=== PATIENT | male | born 1960 | race American Indian/Alaskan Native ===

== ENCOUNTER 2016-07-12 08:20 | Emergency (ER) | payer BC ==
[2016-07-12] MEDS ORDERED: CATAPRES ONE (09:43)
[2016-07-12] MEDS ORDERED: ZESTRIL ONE (09:44)
[2016-07-12] MEDS ORDERED: ZESTRIL PO ONE (09:47)
[2016-07-12] MEDS ORDERED: CATAPRES PO ONE (09:47)
[2016-07-12] MEDS ORDERED: TORADOL IV ONE (10:01)
[2016-07-12 10:20] LABS: Basophils % (Auto) 0.9 % (0.0-1.8); Eosinophils % (Auto) 0.9 % (0.0-4.3); Hematocrit 46.1 % (35.5-45.6); Hemoglobin 15.4 gm/dl (11.8-15.2); Mean Corpuscular HGB Conc 33 % (32-34); Mean Corpuscular Hemoglobin 32 pg (28-32); Mean Corpuscular Volume 96 fl (84-94); Platelet Count 185 K/mm3 (140-440); Red Blood Count 4.82 M/mm3 (3.65-5.03); Red Cell Distribution Width 14.1 % (13.2-15.2); White Blood Count 8.4 K/mm3 (4.5-11.0)
--- NOTE | 2016-07-12 10:58 | Emergency Department Report ---
Entered by JOSIE ANDERS, acting as scribe for ZO MANNING PA. Chief Complaint: Skin/Abscess/Foreign Body Stated Complaint: BOIL ON LEFT SIDE OF NECK Time Seen by Provider: 07/12/16 09:34 - HPI History of Present Illness: Pt c/o left side of neck swelling that gradually worsened over a week. Rates associated pain a 4/10 in severity. Denies fever, nausea, vomiting, difficulty breathing, chest pain, headache, and sore throat. PMHx of HTN Pt notes he stopped taking bp medication, Lisinopril, 6 months ago. Pt's bp currently elevated to 167/116 in triage - ROS Review of Systems: All systems are negative unless stated in HPI above. - Exam Vital Signs: Vital Signs 07/12/16 07/12/16 08:25 08:31 Temperature 98.4 F 98.4 F Pulse Rate 115 H 115 H Respiratory 20 20 Rate Blood Pressure 167/116 Blood Pressure 173/114 [Left] O2 Sat by Pulse 97 97 Oximetry Vital Signs 07/12/16 07/12/16 07/12/16 08:25 08:31 09:34 Temperature 98.4 F 98.4 F 98.4 F Pulse Rate 115 H 115 H 115 H Respiratory 20 20 18 Rate Blood Pressure 167/116 Blood Pressure 173/114 [Left] Blood Pressure 186/131 [Right] O2 Sat by Pulse 97 97 99 Oximetry Physical Exam: General: 55 y/o male that is well nourished, well developed, nontoxic in appearance, and in no acute distress Cardiovascular: S1/S2 regular rate and rhythm. No murmurs, rubs, or gallops. Respiratory: Normal lung sounds bilaterally. No respiratory distress Skin: Warm, dry, intact. Abscess present on left side of neck. MSE screening note: Focused history and physical exam performed. Due to findings the following was ordered: patient has CT scan soft tissue neck ordered for neck abscess evaluation. ED Medical Decision Making - Lab Data Result diagrams: 07/12/16 10:06 - Medical Decision Making Patient seen by provider in triage area. ED Disposition for MSE Condition: Stable This documentation as recorded by the scribe,JOSIE ANDERS,accurately reflects the service I personally performed and the decisions made by NIGEL sol AHMAD R., PA.
[2016-07-12 11:30] LABS: Anion Gap 21 mmol/L; Blood Urea Nitrogen 9 mg/dL (9-20); Calcium 9.2 mg/dL (8.4-10.2); Carbon Dioxide 23 mmol/L (22-30); Chloride 99.9 mmol/L (98-107); Glucose 113 mg/dL (75-100); Potassium 4.1 mmol/L (3.6-5.0); Sodium 140 mmol/L (137-145)
[2016-07-12] MEDS ORDERED: NACL ONE (12:44)
--- NOTE | 2016-07-12 14:11 | Cat Scan Report ---
CT NECK WITH CONTRAST INDICATION: Neck swelling. COMPARISON: None similar. FINDINGS: Neck CT performed following IV contrast. Axial, sagittal and coronal CT reconstructions demonstrate approximately 1.7 x 1.2 cm subcutaneous hypodense possible necrotic lymph node or abscess, axial image 95, series 2 laterally, superficial to the left submandibular gland and overlying muscle. Mild adjacent subcutaneous fat stranding/swelling. No other size significant cervical lymphadenopathy. Normal thyroid and salivary glands. Patent vessels and airway, including aortic arch. Clear visualized upper lungs with minimal left apical emphysematous changes/bullae. Multilevel cervical spondylosis. Dental disease noted. Approximately 3.2 cm right maxillary sinus mucosal thickening/retention cyst inferiorly. Normal imaged intracranial appearance. Mild atherosclerotic internal carotid artery calcifications. CONCLUSION: 1. Left neck superficial/subcutaneous small abscess or suppurative lymph node with adjacent stranding/mild swelling, as described. Please correlate. 2. Few other incidental findings, as above. Thank you for the opportunity to participate in this patient's care.
[2016-07-12] MEDS ORDERED: XYLOCAINE 2%/EPI 1:100,000 INFILTRATI ONE (16:21)
--- NOTE | 2016-07-12 16:26 | Emergency Department Report ---
ED ENT HPI - General Chief complaint: Skin/Abscess/Foreign Body Stated complaint: THROAT SWOLLEN Time Seen by Provider: 07/12/16 16:11 Source: patient Mode of arrival: Ambulatory Limitations: No Limitations - History of Present Illness Initial comments: 55-year-old male with no past medical history presenting today because of left sided neck pain. Patient states that about 3 weeks ago after shaving started noticing a bump in his left anterior neck. States that it slowly worsened and then about a week ago had pus coming out and had been improved but has since worsened over the last week. He has no associated fevers or chills. No numbness or weakness. No changes in vision or confusion. Patient has a current cigarette smoker. Does not have a primary care doctor. - Related Data Previous Rx's Medication Instructions Recorded Last Taken Type Acetaminophen/Codeine [Tylenol #3] 1 tab PO Q6H PRN #20 tab 07/30/15 Unknown Rx Cyclobenzaprine [Flexeril] 10 mg PO TID PRN #30 tablet 07/30/15 Unknown Rx Doxycycline [Vibramycin CAP] 100 mg PO Q12HR #20 capsule 07/30/15 Unknown Rx Ibuprofen [Motrin] 600 mg PO Q8H PRN #40 tablet 07/30/15 Unknown Rx Ibuprofen [Motrin] 600 mg PO Q8H PRN #20 tablet 07/12/16 Unknown Rx Lisinopril [Zestril TAB] 10 mg PO QDAY #30 tablet 07/12/16 Unknown Rx Sulfamethoxazole/Trimethoprim 1 each PO BID #14 tablet 07/12/16 Unknown Rx [Bactrim DS TAB] Allergies Allergy/AdvReac Type Severity Reaction Status Date / Time No Known Allergies Allergy Unverified 07/30/15 15:59 ED Dental HPI - General Chief complaint: Skin/Abscess/Foreign Body Stated complaint: THROAT SWOLLEN Time Seen by Provider: 07/12/16 16:11 Source: patient Mode of arrival: Ambulatory Limitations: No Limitations - Related Data Previous Rx's Medication Instructions Recorded Last Taken Type Acetaminophen/Codeine [Tylenol #3] 1 tab PO Q6H PRN #20 tab 07/30/15 Unknown Rx Cyclobenzaprine [Flexeril] 10 mg PO TID PRN #30 tablet 07/30/15 Unknown Rx Doxycycline [Vibramycin CAP] 100 mg PO Q12HR #20 capsule 07/30/15 Unknown Rx Ibuprofen [Motrin] 600 mg PO Q8H PRN #40 tablet 07/30/15 Unknown Rx Ibuprofen [Motrin] 600 mg PO Q8H PRN #20 tablet 07/12/16 Unknown Rx Lisinopril [Zestril TAB] 10 mg PO QDAY #30 tablet 07/12/16 Unknown Rx Sulfamethoxazole/Trimethoprim 1 each PO BID #14 tablet 07/12/16 Unknown Rx [Bactrim DS TAB] Allergies Allergy/AdvReac Type Severity Reaction Status Date / Time No Known Allergies Allergy Unverified 07/30/15 15:59 ED Review of Systems ROS: Stated complaint: THROAT SWOLLEN Other details as noted in HPI Comment: All other systems reviewed and negative Constitutional: denies: chills, fever ENT: denies: ear pain Respiratory: denies: cough, shortness of breath Cardiovascular: denies: chest pain Gastrointestinal: denies: abdominal pain, vomiting Genitourinary: denies: urgency Skin: rash Neurological: denies: headache Psychiatric: denies: anxiety ED Past Medical Hx - Past Medical History Previous Medical History?: Yes Hx Hypertension: Yes - Surgical History Past Surgical History?: No - Social History Smoking Status: Current Every Day Smoker Substance Use Type: Alcohol, Prescribed - Medications Home Medications: Home Medications Medication Instructions Recorded Confirmed Last Taken Type Acetaminophen/Codeine [Tylenol #3] 1 tab PO Q6H PRN #20 tab 07/30/15 Unknown Rx Cyclobenzaprine [Flexeril] 10 mg PO TID PRN #30 tablet 07/30/15 Unknown Rx Doxycycline [Vibramycin CAP] 100 mg PO Q12HR #20 capsule 07/30/15 Unknown Rx Ibuprofen [Motrin] 600 mg PO Q8H PRN #40 tablet 07/30/15 Unknown Rx Ibuprofen [Motrin] 600 mg PO Q8H PRN #20 tablet 07/12/16 Unknown Rx Lisinopril [Zestril TAB] 10 mg PO QDAY #30 tablet 07/12/16 Unknown Rx Sulfamethoxazole/Trimethoprim 1 each PO BID #14 tablet 07/12/16 Unknown Rx [Bactrim DS TAB] ED Physical Exam - General Limitations: No Limitations General appearance: alert, in no apparent distress - Head Head exam: Present: atraumatic - ENT ENT exam: Present: normal exam - Neck Neck exam: Present: other (left anterior neck with 2.5 cm abscess, no spontaneous drainage, tender to palpation, surrounding erythema) - Respiratory Respiratory exam: Present: normal lung sounds bilaterally. Absent: respiratory distress, wheezes - Cardiovascular Cardiovascular Exam: Absent: regular rate, normal rhythm - GI/Abdominal GI/Abdominal exam: Present: soft. Absent: distended, tenderness, guarding - Neurological Exam Neurological exam: Present: alert. Absent: oriented X3 - Psychiatric Psychiatric exam: Present: normal affect, normal mood - Skin Skin exam: Present: intact ED Course Vital Signs 07/12/16 07/12/16 07/12/16 08:25 08:31 09:34 Temperature 98.4 F 98.4 F 98.4 F Pulse Rate 115 H 115 H 115 H Respiratory 20 20 18 Rate Blood Pressure 167/116 Blood Pressure 173/114 [Left] Blood Pressure 186/131 [Right] O2 Sat by Pulse 97 97 99 Oximetry 07/12/16 07/12/16 09:49 14:20 Temperature 97.5 F L Pulse Rate 115 H 101 H Respiratory 18 Rate Blood Pressure 186/131 153/102 Blood Pressure [Left] Blood Pressure [Right] O2 Sat by Pulse 99 Oximetry - I & D Left Anterior Lateral Neck Type of Procedure: Simple Site: left anterior lateral neck Blade Size: 11 I & D Procedure: sterile drapes applied Progress: ChloraPrep was used to clean the site, approximately 3 mL of 2% lidocaine with epinephrine was inserted at the center of the abscess, incision made over the center approximately 1 cm with purulent thick discharge removed, minimal bleeding, the abscess looks significantly smaller after I&D, patient tolerated well, I explained the patient the importance of following up and using warm compresses to allow continue drainage of the site. ED Medical Decision Making - Lab Data Result diagrams: 07/12/16 10:06 07/12/16 10:06 - Medical Decision Making Labs and CT preordered, CT is consistent with a superficial abscess, labs are unremarkable Clinically patient has an abscess and will attempt an incision and drainage Incision and drainage done without complication, see procedure note, due to surrounding erythema will discharge the patient on antibiotics. Critical care attestation.: If time is entered above; I have spent that time in minutes in the direct care of this critically ill patient, excluding procedure time. ED Disposition Clinical Impression: Neck abscess, Hypertension Disposition: DISCHARGED TO HOME OR SELFCARE Is pt being admited?: No Does the pt Need Aspirin: No Condition: Stable Instructions: Abscess Incision and Drainage (ED), Hypertension (ED) Additional Instructions: Please follow up with a primary care doctor in the next 3-5 days. Return to the emergency room for wound check in approximately 2-3 days. Return earlier to the emergency room if you have significant worsening of your symptoms including worsening swelling, pain, fever or any other new symptoms. Please make sure to use the warm compresses as we have discussed. Prescriptions: Ibuprofen [Motrin] 600 mg PO Q8H PRN #20 tablet PRN Reason: Pain Lisinopril [Zestril TAB] 10 mg PO QDAY #30 tablet Sulfamethoxazole/Trimethoprim [Bactrim DS TAB] 1 each PO BID #14 tablet Referrals: PRIMARY CARE, [Primary Care Provider] - 3-5 Days Time of Disposition: 17:31
[2016-07-12 18:53] VITALS: BP 150/98
== END 2016-07-12 18:53 | disposition home or self-care (01) ==
LOC: ED 08:20
DX: L02.11 Cutaneous abscess of neck (principal); I10 Essential (primary) hypertension; F17.200 Nicotine dependence, unspecified, uncomplicated
CPT/HCPCS: 10060; 36415; 70491; 80048; 85025; 96374; 99284; J1885; Q9967

== ENCOUNTER 2017-10-04 08:31 | Inpatient (IN) | payer BC, OTHER ==
--- NOTE | 2017-10-04 09:50 | Cat Scan Report ---
CT HEAD WITHOUT CONTRAST: HISTORY: Neurological deficit. TECHNIQUE: Sequential 2.5mm CT images. COMPARISON: none. FINDINGS: Cerebral Parenchyma: Chronic infarct in the right frontal lobe measures 3.1 x 2.8 cm in axial plane. The remaining brain parenchyma has normal attenuation. Normal trevino-white interface. No large area of acute ischemia is detected on noncontrast CT. Cerebellum: Within normal limits. Brainstem: Within normal limits. Ventricles: Normal. Sella: Normal. Extra-axial spaces: Normal. Basal Cisterns: Normal. Intracranial Hemorrhage: None. Midline Shift: None. Calvarium: Normal. Sinuses: Mild mucosal thickening is noted in the inferior maxillary sinuses. Mastoid Air Cells: Normal. Visualized Orbits: Normal. IMPRESSION: Chronic infarct in the right frontal lobe. No acute intracranial process identified.
[2017-10-04] MEDS ORDERED: BABY ASPIRIN PO ONE (10:14)
--- NOTE | 2017-10-04 10:14 | Emergency Department Report ---
ED Neuro Deficit HPI - General Chief Complaint: Neuro Symptoms/Deficit Stated Complaint: RIGHT SIDE OF BODY NUMB Time Seen by Provider: 10/04/17 10:04 Source: patient, RN notes reviewed Mode of arrival: Ambulatory Limitations: No Limitations - History of Present Illness Initial Comments: This is a 56-year-old gentleman who is not known to this provider previously, reports a past medical history of hypertension, noncompliant with medications for one year. Patient presents to the ER with complaints of painless numbness to the right face, right arm, right leg. This started at 2:00 in the morning. It is constant. It does not radiate anywhere. He does not have exacerbating or relieving factors. He denies headache, neck pain, chest pain, abdominal pain, shortness of breath, motor weakness, facial droop. He also denies dysarthria, change in speech pattern, bladder or bowel retention or incontinence. -: Sudden Location: right face, right arm, right leg Presenting Symptoms: Absent: Weak/Paralyzed One Side, Sudden, Severe Headache, Blurred/Loss of Vision, Facial Droop/Numbness, Unable to Speak Clearly, Altered Mental Status History of same: No Place: home Severity: moderate Quality: numb Improves With: none Worsens With: none Context: sudden onset Associated Symptoms: denies: confusion, chest pain, cough, diaphoresis, fever/ chills, headaches, loss of appetite, malise, nausea/vomiting, vertigo, seizures , shortness of breath, syncope, weakness - Related Data Home Medications: Previous Rx's Medication Instructions Recorded Last Taken Type Acetaminophen/Codeine [Tylenol #3] 1 tab PO Q6H PRN #20 tab 07/30/15 Unknown Rx Cyclobenzaprine [Flexeril] 10 mg PO TID PRN #30 tablet 07/30/15 Unknown Rx Doxycycline [Vibramycin CAP] 100 mg PO Q12HR #20 capsule 07/30/15 Unknown Rx Ibuprofen [Motrin] 600 mg PO Q8H PRN #40 tablet 07/30/15 Unknown Rx Ibuprofen [Motrin] 600 mg PO Q8H PRN #20 tablet 07/12/16 Unknown Rx Lisinopril [Zestril TAB] 10 mg PO QDAY #30 tablet 07/12/16 Unknown Rx Sulfamethoxazole/Trimethoprim 1 each PO BID #14 tablet 07/12/16 Unknown Rx [Bactrim DS TAB] Allergies/Adverse Reactions: Allergies Allergy/AdvReac Type Severity Reaction Status Date / Time No Known Allergies Allergy Verified 10/04/17 08:36 ED Review of Systems ROS: Stated complaint: RIGHT SIDE OF BODY NUMB Other details as noted in HPI Comment: All other systems reviewed and negative Neurological: numbness, paresthesias ED Past Medical Hx - Past Medical History Hx Hypertension: Yes - Surgical History Past Surgical History?: No - Social History Smoking Status: Current Every Day Smoker Substance Use Type: Alcohol - Medications Home Medications: Home Medications Medication Instructions Recorded Confirmed Last Taken Type Acetaminophen/Codeine [Tylenol #3] 1 tab PO Q6H PRN #20 tab 07/30/15 Unknown Rx Cyclobenzaprine [Flexeril] 10 mg PO TID PRN #30 tablet 07/30/15 Unknown Rx Doxycycline [Vibramycin CAP] 100 mg PO Q12HR #20 capsule 07/30/15 Unknown Rx Ibuprofen [Motrin] 600 mg PO Q8H PRN #40 tablet 07/30/15 Unknown Rx Ibuprofen [Motrin] 600 mg PO Q8H PRN #20 tablet 07/12/16 Unknown Rx Lisinopril [Zestril TAB] 10 mg PO QDAY #30 tablet 07/12/16 Unknown Rx Sulfamethoxazole/Trimethoprim 1 each PO BID #14 tablet 07/12/16 Unknown Rx [Bactrim DS TAB] ED Neuro Physical Exam - General Limitations: No Limitations General appearance: alert, in no apparent distress Suspected Stroke: Yes - Head Head exam: Present: atraumatic, normocephalic - Eye Eye exam: Present: normal appearance, PERRL, EOMI, other (visual acuity intact to finger counting, color perception, reading at a close distance). Absent: nystagmus - ENT ENT exam: Present: normal exam, normal orophraynx, mucous membranes moist, normal external ear exam - Neck Neck exam: Present: normal inspection, full ROM. Absent: tenderness, meningismus - Respiratory Respiratory exam: Present: normal lung sounds bilaterally. Absent: respiratory distress - Cardiovascular Cardiovascular Exam: Present: normal rhythm, tachycardia, normal heart sounds. Absent: systolic murmur, diastolic murmur, rubs, gallop - GI/Abdominal GI/Abdominal exam: Present: soft. Absent: distended, tenderness, guarding, rebound, rigid, pulsatile mass - Rectal Rectal exam: Present: deferred - Extremities Exam Extremities exam: Present: normal inspection, full ROM, normal capillary refill. Absent: tenderness, pedal edema, joint swelling, calf tenderness - Back Exam Back exam: Present: normal inspection, full ROM. Absent: tenderness, CVA tenderness (R), paraspinal tenderness, vertebral tenderness - Neurological Exam Neurological exam: Present: alert, oriented X3, motor sensory deficit (there is decreased sensation to light touch right upper, right lower extremity. Sensation intact to pinprick bilateral upper, lower extremities. 5 out of 5 strength bilateral upper, lower extremities.). Absent: CN II-XII intact (there is decreased sensation to light touch on the right side V1, V2, V3 distribution. Cranial nerves II through XII otherwise intact) - NIHSS Assessment Interval: Baseline 1a. Level of Consciousness: alert 1b. LOC Questions: answers correctly 1c. LOC Commands: performs tasks correctly 2. Best Gaze: normal 3. Visual: no visual loss 4. Facial Palsy: normal symmetrical movement 5b. Motor Arm Right: no drift 5a. Motor Arm Left: no drift 6a. Motor Leg Left: no drift 6b. Motor Leg Right: no drift 7. Limb Ataxia: absent 8. Sensory: mild/moderate sensory loss 9. Best Language: no aphasia 10. Dysarthria: normal 11. Extinction/Inattention: no abnormality Total Score: 1 Stroke Severity: Minor Stroke - Psychiatric Psychiatric exam: Present: normal affect, normal mood - Skin Skin exam: Present: warm, dry, intact, normal color. Absent: rash ED Course Vital Signs 10/04/17 08:36 Temperature 97.8 F Pulse Rate 102 H Respiratory 20 Rate Blood Pressure 185/117 O2 Sat by Pulse 99 Oximetry - Lab Data Result diagrams: 10/04/17 10:00 10/04/17 10:00 Lab Results 10/04/17 10/04/17 10/04/17 Range/Units 08:41 10:00 10:00 WBC 6.5 (4.5-11.0) K/mm3 RBC 4.95 (3.65-5.03) M/mm3 Hgb 16.0 H (11.8-15.2) gm/dl Hct 46.7 H (35.5-45.6) % MCV 94 (84-94) fl MCH 32 (28-32) pg MCHC 34 (32-34) % RDW 13.9 (13.2-15.2) % Plt Count 177 (140-440) K/mm3 Lymph % (Auto) 30.8 (13.4-35.0) % [place] % (Auto) 8.9 H (0.0-7.3) % Eos % (Auto) 0.9 (0.0-4.3) % Baso % (Auto) 1.2 (0.0-1.8) % Lymph # 2.0 (1.2-5.4) K/mm3 [place] # 0.6 (0.0-0.8) K/mm3 Eos # 0.1 (0.0-0.4) K/mm3 Baso # 0.1 (0.0-0.1) K/mm3 Seg Neutrophils % 58.2 (40.0-70.0) % Seg Neutrophils # 3.8 (1.8-7.7) K/mm3 PT 12.8 (12.2-14.9) Sec. INR 0.92 (0.87-1.13) APTT 26.2 (24.2-36.6) Sec. Thrombin Time (15.1-19.6) Sec. Sodium (137-145) mmol/L Potassium (3.6-5.0) mmol/L Chloride (98-107) mmol/L Carbon Dioxide (22-30) mmol/L Anion Gap mmol/L BUN (9-20) mg/dL Creatinine (0.8-1.5) mg/dL Estimated GFR ml/min BUN/Creatinine Ratio % Glucose (75-100) mg/dL POC Glucose 104 (70-105) Calcium (8.4-10.2) mg/dL Troponin T (0.00-0.029) ng/mL 10/04/17 10/04/17 Range/Units 10:00 10:00 WBC (4.5-11.0) K/mm3 RBC (3.65-5.03) M/mm3 Hgb (11.8-15.2) gm/dl Hct (35.5-45.6) % MCV (84-94) fl MCH (28-32) pg MCHC (32-34) % RDW (13.2-15.2) % Plt Count (140-440) K/mm3 Lymph % (Auto) (13.4-35.0) % [place] % (Auto) (0.0-7.3) % Eos % (Auto) (0.0-4.3) % Baso % (Auto) (0.0-1.8) % Lymph # (1.2-5.4) K/mm3 [place] # (0.0-0.8) K/mm3 Eos # (0.0-0.4) K/mm3 Baso # (0.0-0.1) K/mm3 Seg Neutrophils % (40.0-70.0) % Seg Neutrophils # (1.8-7.7) K/mm3 PT (12.2-14.9) Sec. INR (0.87-1.13) APTT (24.2-36.6) Sec. Thrombin Time 18.3 (15.1-19.6) Sec. Sodium 141 (137-145) mmol/L Potassium 4.9 (3.6-5.0) mmol/L Chloride 104.9 (98-107) mmol/L Carbon Dioxide 23 (22-30) mmol/L Anion Gap 18 mmol/L BUN 9 (9-20) mg/dL Creatinine 0.7 L (0.8-1.5) mg/dL Estimated GFR > 60 ml/min BUN/Creatinine Ratio 13 % Glucose 109 H (75-100) mg/dL POC Glucose (70-105) Calcium 9.3 (8.4-10.2) mg/dL Troponin T < 0.010 (0.00-0.029) ng/mL - EKG Data -: EKG Interpreted by Ri EKG shows normal: sinus rhythm Rate: tachycardia When compared to previous EKG there are: previous EKG unavailable 10/04/17 11:15 Sinus tachycardia, normal axis, QTC prolonged, high left ventricular voltage, atrial enlargement, Q waves in the inferior leads. Abnormal EKG. Not a STEMI. - Radiology Data Radiology results: report reviewed, image reviewed Noncontrast CT scan of the brain is negative for acute findings. Chronic infarct is suggested. - Medical Decision Making Differential diagnosis, including but not limited to: Multiple sclerosis, subacute stroke Assessment and plan: 56-year-old male who presents to the ER with an NIH score of 1, decreased sensation to light touch in the right upper, right lower extremity, and decreased sensation to light touch in the right side V1, V2, V3 distribution. Very suspicious for subacute stroke. Patient reports wake up symptoms, and reports symptom onset at 2:00 in the morning, and he presented to the ER more than 4.5 hours after symptom onset. He is therefore not a TPA candidate. He does not require emergent endovascular imaging, given his low NIH score, and pure sensory syndrome. This case was discussed with consulting stroke neurologist, Dr. De La Rosa, who agreed with all this, and agreed with plan for admission for further evaluation for presumed subacute stroke. Elevated blood pressure is appreciated, and we will allow for permissive hypertension for the next 24 hours. The case is presented to the Hospital physician, Dr. Jun Calles, who has accepted the patient to the medical service. - Core Measures Measure Exclusions: not indicated - Thrombolytic Inclusion/Exclusion Thrombolytic Exclusion Criteria: Symptom Onset > 3 Hours Critical care attestation.: If time is entered above; I have spent that time in minutes in the direct care of this critically ill patient, excluding procedure time. ED Disposition Clinical Impression: CVA (cerebral vascular accident) Qualifiers: CVA mechanism: other Qualified Code(s): I63.8 - Other cerebral infarction Disposition: DC-09 OP ADMIT IP TO THIS HOSP Is pt being admited?: Yes Does the pt Need Aspirin: Yes Condition: Good
[2017-10-04 10:16] LABS: Basophils # (Auto) 0.1 K/mm3 (0.0-0.1); Basophils % (Auto) 1.2 % (0.0-1.8); Eosinophils # (Auto) 0.1 K/mm3 (0.0-0.4); Eosinophils % (Auto) 0.9 % (0.0-4.3); Hematocrit 46.7 % (35.5-45.6); Lymphocytes % (Auto) 30.8 % (13.4-35.0); Mean Corpuscular HGB Conc 34 % (32-34); Mean Corpuscular Hemoglobin 32 pg (28-32); Mean Corpuscular Volume 94 fl (84-94); Monocytes # (Auto) 0.6 K/mm3 (0.0-0.8); Monocytes % (Auto) 8.9 % (0.0-7.3); Platelet Count 177 K/mm3 (140-440); Red Blood Count 4.95 M/mm3 (3.65-5.03); Red Cell Distribution Width 13.9 % (13.2-15.2)
[2017-10-04 10:28] LABS: INR 0.92 (0.87-1.13)
[2017-10-04 10:29] LABS: Partial Thromboplastin Time 26.2 Sec. (24.2-36.6)
[2017-10-04 10:31] LABS: BUN/Creatinine Ratio 13; Blood Urea Nitrogen 9 mg/dL (9-20); Calcium 9.3 mg/dL (8.4-10.2); Hemolysis Index 30
--- NOTE | 2017-10-04 12:17 | History and Physical Report ---
History of Present Illness Date of examination: 10/04/17 Date of admission: 10/04/17 10:35 History of present illness: Patient presents with numbness and tingling right side. No headache, no focal weakness Past History Past Medical History: hypertension Past Surgical History: No surgical history Social history: , lives with family, smoking, alcohol abuse, full code Family history: diabetes, other (CHF) Medications and Allergies Allergies Allergy/AdvReac Type Severity Reaction Status Date / Time No Known Allergies Allergy Verified 10/04/17 08:36 Home Medications Medication Instructions Recorded Confirmed Last Taken Type No Known Home Medications [No 10/04/17 10/04/17 Unknown History Reported Home Medications] Exam - Physical Exam Narrative exam: GEN:Not in acute distress, HEENT: Normocephalic, atraumatic, Neck: supple, No JVD Lungs:Clear to auscultation bilaterally, no crackles, no wheeze Heart:S1 and S2 reg, no murmurs, rubs or gallop Abd:soft, NT, non-distended, Normal BS Ext: No edema, clubbing or cyanosis Neuro:Awake,alert,oriented x 3 Psych: Normal mood - Constitutional Vitals: Temp Pulse Resp BP Pulse Ox 97.8 F 102 H 20 185/117 99 10/04/17 08:36 10/04/17 08:36 10/04/17 08:36 10/04/17 08:36 10/04/17 08:36 Results - Labs CBC & Chem 7: 10/04/17 10:00 10/04/17 10:00 Labs: Abnormal lab results 10/04/17 10/04/17 Range/Units 10:00 10:00 Hgb 16.0 H (11.8-15.2) gm/dl Hct 46.7 H (35.5-45.6) % [place] % (Auto) 8.9 H (0.0-7.3) % Creatinine 0.7 L (0.8-1.5) mg/dL Glucose 109 H (75-100) mg/dL Assessment and Plan Acute ischemic stroke Hypertension
[2017-10-04] MEDS ORDERED: ALUM-MAG HYDROX-SIMETH 200-200-20MG/5ML PO PRN (12:38)
[2017-10-04] MEDS ORDERED: ZOFRAN IV PRN (12:38)
[2017-10-04] MEDS ORDERED: MORPHINE IV PRN (12:38)
[2017-10-04] MEDS ORDERED: TYLENOL PO PRN (12:38)
[2017-10-04] MEDS ORDERED: SODIUM CHLORIDE FLUSH SYRINGE 10 ML IV PRN ×2 (12:38→12:43)
--- NOTE | 2017-10-04 16:34 | Consultation ---
History of Present Illness Consult date: 10/04/17 Requesting physician: DENG BILLINGSLEY Reason for Consult: stroke History of present illness: 56 year old right handed male with history of hypertension presented to ER this a.m., having awakened at 2 a.m. noting numbness of right face, arm and leg. Admission blood pressure was 185/117. It has since come down but symptoms have not improved. The patient denies weakness, dizziness, vision changes, diplopia , diaphoresis, speech difficulty, or palpitations with the event. He has never had similar symptoms before. Denies chest pain or cardiac history. He states that he used to take an anti-hypertensive medication but it made him nauseated so he stopped about one year ago. He has been taking no medications. He was outside the window for TPA treatment. 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 Carotid doppler is less than 50% occlusion. The patient admits smoking one pack per 3 days for the last 20 years. He drinks daily as well. Past History Past Medical History: hypertension Past Surgical History: No surgical history Social history: , lives with family, smoking, alcohol abuse, full code Family history: CAD, diabetes, hypertension, stroke, other (CHF) Medications and Allergies Allergies Allergy/AdvReac Type Severity Reaction Status Date / Time No Known Allergies Allergy Verified 10/04/17 08:36 Home Medications Medication Instructions Recorded Confirmed Last Taken Type No Known Home Medications [No 10/04/17 10/04/17 Unknown History Reported Home Medications] Active Meds: Active Medications Acetaminophen (Tylenol) 650 mg PO Q4H PRN PRN Reason: Pain MILD(1-3)/Fever >100.5/KIRBY Al Hydrox/Mg Hydrox/Simethicone (Alum-Mag Hydrox-Simeth [phone]/5ml) 30 ml PO Q4H PRN PRN Reason: Indigestion Aspirin (Ecotrin) 325 mg PO QDAY KIRSTEN Morphine Sulfate (Morphine) 2 mg IV Q4H PRN PRN Reason: Pain, Moderate (4-6) Ondansetron HCl (Zofran) 4 mg IV Q8H PRN PRN Reason: Nausea And Vomiting Sodium Chloride (Sodium Chloride Flush Syringe 10 Ml) 10 ml IV BID KIRSTEN Sodium Chloride (Sodium Chloride Flush Syringe 10 Ml) 10 ml IV PRN PRN PRN Reason: LINE FLUSH Review of Systems Constitutional: no weight loss, no weight gain, no sweats, no night sweats, no weakness, no chronic headaches Ears, nose, mouth and throat: no tinnitis, no decreased hearing, no headache, no vertigo Cardiovascular: no chest pain, no orthopnea, no palpitations, no rapid/ irregular heart beat, no edema, no syncope, no lightheadedness, no shortness of breath, no dyspnea on exertion Respiratory: no cough, no shortness of breath, no congestion Gastrointestinal: no abdominal pain, no nausea, no vomiting, no diarrhea, no constipation Genitourinary Male: no dysuria, no urinary frequency Musculoskeletal: arm numbness/tingling, leg numbness/tingling, no neck stiffness , no neck pain, no gait dysfunction Integumentary: no rash Neurological: numbness, tingling, sensory deficit, no weakness, no parathesias, no seizures, no lack of coordination, no vertigo, no headaches, no change in speech, no gait dysfunction, no motor disturbance, no double vision, no loss of vision, no hearing difficulties Physical Examination - Vital Signs Vital Signs: Vital Signs Temp Pulse Resp BP Pulse Ox 97.8 F 102 H 20 185/117 99 10/04/17 08:36 10/04/17 08:36 10/04/17 08:36 10/04/17 08:36 10/04/17 08:36 - Physical Exam Narrative exam: Resting comfortably on stretcher. HEENT - no inflammation or lesions. neck supple Chest - clear to auscultation. Heart - reg. rate, nl S-1, S-2. no extra sounds. Abdomen - soft, nontender. No masses. Extremities - no CCE. Neurological - speech fluent, oriented times 3. 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 Face symmetric. V-1 thru V-3 with decreased sensation on the right. Hearing intact. Tongue midline Motor - 5/5 throughout. Reflexes - +1 throughout. Sensory - decreased sharp and touch left arm and leg. Cerebellar - FTN, Cadence, fine finger movements intact. - Assessment Assessment Interval: Baseline - Level of Consciousness 1a. Level of Consciousness: alert - LOC Questions 1b. LOC Questions: answers correctly - LOC Command 1c. LOC Commands: performs tasks correctly - Best Gaze 2. Best Gaze: normal - Visual 3. Visual: no visual loss - Facial Palsy 4. Facial Palsy: normal symmetrical movement - Motor Arm 5b. Motor Arm Right: no drift - Motor Leg 6a. Motor Leg Left: no drift - Limb Ataxia 7. Limb Ataxia: absent - Sensory 8. Sensory: mild/moderate sensory loss - Best Language 9. Best Language: no aphasia - Dysarthria 10. Dysarthria: normal - Extinction and Inattention 11. Extinction/Inattention: no abnormality Results - Laboratory Findings CBC and BMP: 10/04/17 10:00 10/04/17 10:00 Abnormal Lab Findings: Abnormal Labs 10/04/17 10/04/17 10:00 10:00 Hgb 16.0 H Hct 46.7 H Levy % (Auto) 8.9 H Creatinine 0.7 L Glucose 109 H Assessment and Plan 56 year old male with hypertension and smoking history presents with right sided numbness, face, arm and leg. MRI reveals old cortical right frontal CVA. Suspect a subcortical TIA/infarct in basal ganglia or brain stem. Plan - ASA daily Atorvastatin Blood pressure control Smoking cessation.
--- NOTE | 2017-10-04 17:45 | Magnetic Resonance Report ---
FINAL REPORT EXAM: MR BRAIN WO CON HISTORY: stroke TECHNIQUE: Multiplanar multisequence noncontrast MR images of the brain were performed Comparison: None FINDINGS: Fully formed corpus callosum. Unremarkable sella turcica, colliculus, brainstem, and posterior fossa. There is mild focal restricted diffusion in the right frontal cortical white matter with associated cystic subcortical change. There is gyral fullness. There is no surrounding white matter edema to suggest cytotoxic edema of underlying mass. There is no midline shift or mass effect. There are normal T2 intracranial flow voids on the left. The right internal carotid artery in the supraclinoid region is not as well seen as the left. The right middle cerebral artery appears to have a normal T2 flow void, course and caliber. The dural venous sinuses are patent. Cerebellopontine angles and vestibulocochlear nerve sheath bundles are unremarkable. Orbital cones and apices are unremarkable. Mild ethmoid and frontal sinus mucosal thickening. No acute blood products. IMPRESSION: Mild right frontal cortical restricted diffusion with cystic subcortical change. Findings suggestive of right frontal cortical and subcortical subacute infarct with cortical necrosis and mild gyral edema. No prior exams for comparison. A subtle oligodendroglioma/astrocytoma could have a similar appearance No significant midline shift. No acute or chronic blood products identified. Recommend MRI brain with gadolinium and MRA carotid/[place] of [place] or CTA carotid/[place] of [place]. Critical level 2 report. Findings called on 10/04/2017 at 1737 hours EST.
--- NOTE | 2017-10-04 17:54 | Magnetic Resonance Report ---
FINAL REPORT EXAM: MR MRA/MRV HEAD WO CON HISTORY: stroke TECHNIQUE: Axial 3D [id number] noncontrast MR images of the brain were performed Comparison: MR brain earlier same day FINDINGS: Axial source images demonstrate could dominant vertebral arteries with normal joining for the basilar artery and normal posterior fossa branching pattern. The distal cervical bilateral carotid arteries have normal course and caliber. The cavernous and supraclinoid carotid arteries are mildly tortuous but show normal course, caliber in enhancement pattern. The anterior and middle cerebral arteries have normal course and caliber. Anterior communicating artery is patent. Posterior communicating arteries are small caliber bilaterally. The distal right middle cerebral artery branches show normal enhancement pattern with an apparent encephalomalacia low cortical density in the right frontal region. No aneurysm. No additional abnormality identified. IMPRESSION: Normal MRA [place] of [place].
[2017-10-04 20:14] LABS: Chol/HDL Ratio 4.55 %
[2017-10-04] MEDS: SODIUM CHLORIDE FLUSH SYRINGE 10 ML IV SCH (21:34)
[2017-10-05 07:23] LABS: Basophils # (Auto) 0.1 K/mm3 (0.0-0.1); Basophils % (Auto) 1.3 % (0.0-1.8); Eosinophils # (Auto) 0.1 K/mm3 (0.0-0.4); Eosinophils % (Auto) 1.9 % (0.0-4.3); Hematocrit 43.8 % (35.5-45.6); Lymphocytes # (Auto) 2.2 K/mm3 (1.2-5.4); Lymphocytes % (Auto) 44.7 % (13.4-35.0); Mean Corpuscular HGB Conc 34 % (32-34); Mean Corpuscular Hemoglobin 32 pg (28-32); Mean Corpuscular Volume 94 fl (84-94); Monocytes # (Auto) 0.5 K/mm3 (0.0-0.8); Monocytes % (Auto) 10.2 % (0.0-7.3); Platelet Count 166 K/mm3 (140-440); Red Blood Count 4.67 M/mm3 (3.65-5.03); Red Cell Distribution Width 13.8 % (13.2-15.2)
[2017-10-05 07:52] LABS: BUN/Creatinine Ratio 15; Blood Urea Nitrogen 9 mg/dL (9-20); Calcium 9.7 mg/dL (8.4-10.2); Hemolysis Index 49
[2017-10-05] MEDS: SODIUM CHLORIDE FLUSH SYRINGE 10 ML IV SCH (09:49)
[2017-10-05] MEDS ORDERED: ECOTRIN PO SCH (10:00)
[2017-10-05 12:20] VITALS: BP 148/101
--- NOTE | 2017-10-05 12:32 | Progress Note ---
Assessment and Plan 56 year old male with hypertension and smoking history presents with right sided numbness, face, arm and leg. MRI reveals old cortical right frontal CVA. Suspect a subcortical TIA/infarct in basal ganglia or brain stem. The patient has gone past 24 hours with residual sensory symptoms. This qualifies as a RIND - residual ischemic neurological deficit. The lesion may be too small to detect and missed on MRI cuts. It may be in the basal gangli, external capsule , or brainstem affecting only sensory fibers. Plan - MRI with contrast ASA daily Atorvastatin Blood pressure control Smoking cessation. Subjective Date of service: 10/05/17 Principal diagnosis: Residual ischemic deficit Interval history: 56 year old right handed male presented with right face, arm and leg numbness occurring in calender wind up tender hours of 10/04. He has history of uncontrolled hypertension and smoking. Over the night his symptoms have markedly improved, with still some sense of numbness, without the pins and needles effect. Arm and hand are almost back to normal. MRI scan reveals a right frontal area of encephalomalacia. This is not the cause of his current symptoms. Radiology feels that a contrast study should be done to rule out low grade neoplasm. Objective - Exam Narrative Exam: Awake in bed, feeling improved. HEENT - no inflammation or lesions. neck supple Chest - clear to auscultation. Heart - reg. rate, nl S-1, S-2. no extra sounds. Abdomen - soft, nontender. No masses. Extremities - no CCE. Neurological - speech fluent, oriented times 3. 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 Face symmetric. V-1 thru V-3 with decreased sensation on the right. Hearing intact. Tongue midline Motor - 5/5 throughout. Reflexes - +1 throughout. Sensory - decreased sharp and touch left arm and leg, no pins and needles sensation. Improved compared to yesterday. Cerebellar - FTN, Cadence, fine finger movements intact. Gait normal. - Vital Sign Vital Signs - 12hr 10/05/17 10/05/17 10/05/17 05:15 05:16 06:41 Temperature 98.7 F 98.7 F Pulse Rate 87 86 82 Respiratory 8 L 18 Rate Blood Pressure 144/89 Blood Pressure 168/107 [Right] O2 Sat by Pulse 98 98 99 Oximetry 10/05/17 10/05/17 10/05/17 07:34 10:00 11:48 Temperature 98.5 F 98.6 F Pulse Rate 85 85 84 Respiratory 19 19 Rate Blood Pressure 147/97 148/101 Blood Pressure [Right] O2 Sat by Pulse 97 97 Oximetry - Laboratory Findings CBC and BMP: 10/05/17 06:40 10/05/17 06:40 Abnormal Lab Findings: Abnormal Labs 10/04/17 10/04/17 10/04/17 10:00 10:00 19:37 Hgb 16.0 H Hct 46.7 H Lymph % (Auto) [place] % (Auto) 8.9 H Carbon Dioxide Creatinine 0.7 L Glucose 109 H Triglycerides 152 H Cholesterol 278 H LDL Cholesterol Direct 209 H HDL Cholesterol 61 H 10/05/17 10/05/17 06:40 06:40 Hgb Hct Lymph % (Auto) 44.7 H [place]ill % (Auto) 10.2 H Carbon Dioxide 21 L Creatinine 0.6 L Glucose 111 H Triglycerides Cholesterol LDL Cholesterol Direct HDL Cholesterol
[2017-10-05] MEDS ORDERED: APRESOLINE IV PRN (16:09)
--- NOTE | 2017-10-05 16:09 | Discharge Summary ---
Providers - Providers Date of Admission: 10/04/17 10:35 Date of discharge: 10/05/17 Attending physician: DENG BILLINGSLEY 10/04/17 Consult to Case Management [CONS] Routine Services Needed at Discharge: Other Notified:: case management 10/04/17 10:13 Consult to Physician [CONS] Urgent Comment: Consulting Provider: SUSAN POE Physician Instructions: Reason For Exam: cva 10/04/17 10:51 Consult to Physician [CONS] Routine Comment: Consulting Provider: CHERI MARKS Physician Instructions: Reason For Exam: Numbness right side, to r/o stroke 10/04/17 12:43 Occupational Therapy Evaluate and Treat [CONS] Routine Comment: Reason For Exam: Neuro deficits Physical Therapy Evaluation and Treat [CONS] Routine Comment: Reason For Exam: Neuro deficits 10/04/17 12:45 Occupational Therapy Evaluate and Treat [CONS] Routine Comment: Reason For Exam: Neuro deficits Physical Therapy Evaluation and Treat [CONS] Routine Comment: Reason For Exam: Neuro deficits 10/04/17 12:46 Speech Therapy Evaluation and Treat [CONS] Routine Reason For Exam: swallow eval Primary care physician: EMBEDDED DEVELOPER Hospitalization Condition: Good Disposition: DC-01 TO HOME OR SELFCARE Core Measure Documentation - Palliative Care Palliative Care/ Comfort Measures: Not Applicable - Core Measures Any of the following diagnoses?: stroke Exam - Constitutional Vitals: Temp Pulse Resp BP Pulse Ox 98.6 F 84 19 148/101 97 10/05/17 11:48 10/05/17 11:48 10/05/17 11:48 10/05/17 11:48 10/05/17 11:48 Plan Activity: advance as tolerated Diet: low fat, low cholesterol, low salt Additional Instructions: 1.Follow up with PCP or [facility] in 1 week. 2.Follow up with Neurology of choice in [address] Higginbotham, Neurology Follow up with: PRIMARY CARE, [Primary Care Provider] - 3-5 Days Prescriptions: amLODIPine [Norvasc] 5 mg PO QDAY #30 tablet Aspirin EC [Aspirin Enteric Coated TAB] 325 mg PO QDAY #30 tablet AtorvaSTATin [Lipitor] 40 mg PO QHS #30 tablet
[2017-10-05] MEDS ORDERED: NORVASC PO SCH (17:00)
--- NOTE | 2017-10-05 17:19 | Magnetic Resonance Report ---
FINAL REPORT EXAM: MR BRAIN W CON HISTORY: Stroke, need MRI with contrast TECHNIQUE: MRI of the brain, including axial and coronal T1 post gadolinium images only. 15 mL MultiHance IV. PRIORS: Noncontrast MRI brain, 04 October 2017. FINDINGS: Brain volume is normal for age. Small, focal area of T1 signal hypointensity with somewhat gyriform enhancement again noted in right lateral frontal region and cortex corresponding to area of restricted diffusion and probable subacute ischemic change noted on comparison study. No other abnormal enhancement. No apparent parenchymal mass, mass-effect, midline shift or hydrocephalus. No pathologic extra-axial fluid collection. No pineal region or sellar masses. IMPRESSION: 1. Findings suggesting subacute ischemic change or infarct in right lateral frontal region and cortex. Clinical correlation and short interval followup with repeat CT or MRI brain in 1-3 months suggested to document expected evolution of ischemic change, since neoplastic process, including low-grade glioma, may have similar appearance.
[2017-10-05 17:36] LABS: Alanine Aminotransferase 33 units/L (7-56); Albumin 3.9 g/dL (3.9-5)
[2017-10-05 17:39] LABS: Bilirubin,Direct < 0.2 mg/dL (0-0.2)
== END 2017-10-05 16:00 | disposition home or self-care (01) | DRG 66 ==
LOC: ED 08:31 → 4A 10:35
PROVIDERS: ADMIT Internal Medicine; ATTEND Internal Medicine
DX: I63.9 Cerebral infarction, unspecified (principal); I10 Essential (primary) hypertension; F17.200 Nicotine dependence, unspecified, uncomplicated; F10.10 Alcohol abuse, uncomplicated; Y90.0 Blood alcohol level of less than 20 mg/100 ml; Z82.49 Family history of ischemic heart disease and other diseases of the circulatory system; Z83.3 Family history of diabetes mellitus; Z82.3 Family history of stroke; I69.398 Other sequelae of cerebral infarction
CPT/HCPCS: 36415; 70450; 70544; 70551; 70552; 80048; 80061; 80074; 82962; 84484; 85025; 85610; 85670; 85730; 93005; 93010; 93306; 93880; 99406; A9577